=== PATIENT | male | born 1995 ===

== ENCOUNTER 2020-03-13 17:04 | Emergency (ER) | payer MEDICAID, OTHER ==
[~2020-03-13] VITALS: Ht 167.6 cm; Wt 84.1 kg
[2020-03-13] MEDS ORDERED: fentaNYL/PF 50MCG/1 ML 2ML syringe IV ONE (17:15)
[2020-03-13] MEDS ORDERED: iohexol 300mg/ml 100ml inj. ONE (17:15)
--- NOTE | 2020-03-13 17:17 | NUR ---
To CT scan
[2020-03-13 17:28] LABS: BASOPHILS % (AUTO) 0.3 % (0-1); EOSINOPHILS # (AUTO) 0.3 X10'3 (0-0.9); EOSINOPHILS % (AUTO) 2.5 % (0-6); HEMATOCRIT 41.8 % (42.0-52.0); HEMOGLOBIN 13.6 g/dl (14.0-17.9); LYMPHOCYTES # (AUTO) 4.4 X10'3 (1.1-4.8); LYMPHOCYTES % (AUTO) 39.2 % (21-51); MEAN CORPUSCULAR HEMOGLOBIN 26.1 PG (27.0-31.0); MEAN CORPUSCULAR HGB CONC 32.6 g/dL (33.0-36.5); MEAN CORPUSCULAR VOLUME 80.1 FL (78-98); MEAN PLATELET VOLUME 8.1 FL (7.4-10.4); MONOCYTES % (AUTO) 8.5 % (2-12); NEUTROPHILS # (AUTO) 5.6 X10'3 (1.8-7.7); NEUTROPHILS % (AUTO) 49.5 % (42-75); PLATELET COUNT 405 X10'3 (140-440); RED BLOOD COUNT 5.22 X10'6 (4.70-6.10); WHITE BLOOD COUNT 11.3 X10'3 (4.5-11.0)
--- NOTE | 2020-03-13 17:39 | NUR ---
Return from CT
[2020-03-13 17:41] LABS: PARTIAL THROMBOPLASTIN TIME 28 SECONDS (22-32)
[2020-03-13 17:43] LABS: ALANINE AMINOTRANSFERASE 34 U/L (12-78); ALBUMIN 3.8 G/DL (3.4-5.0); ALBUMIN/GLOBULIN RATIO 0.9 (1.1-1.5); ALKALINE PHOSPHATASE 67 IU/L (46-116); ANION GAP 10 (8-16); ASPARTATE AMINO TRANSFERASE 20 U/L (10-37); BILIRUBIN,TOTAL 0.3 MG/DL (0.1-1.0); BLOOD UREA NITROGEN 12 MG/DL (7-18); BUN/CREATININE RATIO 10.9 (5.4-32.0); CHLORIDE 103 MMOL/L (99-107); GLUCOSE 113 MG/DL (70-104); POTASSIUM 3.4 MMOL/L (3.5-5.1); SODIUM 139 MMOL/L (135-145); TOTAL PROTEIN 7.9 G/DL (6.4-8.2); eGFR 81 ML/MIN
[2020-03-13 17:46] LABS: ETHANOL < 0.010 GM/DL (0.0-0.010); LIPASE 127 U/L (73-393); TROPONIN I < 0.04 NG/ML (0.0-0.05)
[2020-03-13] MEDS ORDERED: NO HOME MEDS (17:53)
[2020-03-13] MEDS ORDERED: ondansetron/PF 4mg/2ml inj IV ONE ×2 (17:55→18:00)
[2020-03-13 18:04] LABS: CLARITY,URINE CLEAR (Clear); COLOR,URINE YELLOW (Yellow); GLUCOSE, URINE NEGATIVE (Neg); KETONES,URINE NEGATIVE (Neg); LEUKOCYTE ESTERASE ,URINE NEGATIVE (Neg); NITRITES, URINE NEGATIVE (Neg); OCCULT BLOOD,URINE TRACE-INTACT (Neg); PROTEIN,URINE NEGATIVE (Neg); UROBILINOGEN,URINE 0.2 E.U/dL (0.2-1.0)
[2020-03-13 18:11] LABS: UA COLLECTION TYPE FOLEY CATH
[2020-03-13 18:12] LABS: BACTERIA,URINE NONE SEEN /HPF (Neg); MUCUS STRANDS FEW /LPF (Neg); RBC,URINE 0-2 /HPF (0-2); SQUAMOUS EPITHELIAL CELL,UR FEW /LPF (FEW); WBC,URINE 0-4 /HPF (0-4)
[2020-03-13] MEDS ORDERED: ceFAZolin 1GM/D5W- ADD-VANTAGE 50 ML IV ONE (18:15)
[2020-03-13 18:16] LABS: URINE AMPHETAMINE SCREEN NEGATIVE (Neg); URINE BARBITUATE SCREEN NEGATIVE (Neg); URINE BENZODIAZEPINES SCREEN NEGATIVE (Neg); URINE CANNABINOID SCREEN NEGATIVE (Neg); URINE COCAINE SCREEN NEGATIVE (Neg); URINE METHADONE SCREEN NEGATIVE (Neg); URINE OPIATE SCREEN NEGATIVE (Neg); URINE PHENCYCLIDINE SCREEN NEGATIVE (Neg)
[2020-03-13 18:24] VITALS: BP 153/75
[2020-03-13] MEDS ORDERED: TETanus/Pertussis (Acell)/Diphther VAC/PF (Tdap-Adult) 0.5ml syringe IMVAC ONE (18:25)
[2020-03-13] MEDS ORDERED: normal saline 1000ml 1,000 ML IV ONE ×2 (18:50)
== END 2020-03-13 18:40 | disposition short-term general hospital (02) ==
LOC: ER 17:05 → EDBD 17:05 → ER 18:40
DX: S02.19XA Other fracture of base of skull, initial encounter for closed fracture (principal); S02.40EA Zygomatic fracture, right side, initial encounter for closed fracture; S68.611A Complete traumatic transphalangeal amputation of left index finger, initial encounter; I49.8 Other specified cardiac arrhythmias; V89.2XXA Person injured in unspecified motor-vehicle accident, traffic, initial encounter; Y93.89 Activity, other specified; Y92.410 Unspecified street and highway as the place of occurrence of the external cause; Y99.8 Other external cause status
CPT/HCPCS: 36415; 70450; 70486; 71260; 72125; 72128; 72131; 73130; 74177; 80053; 80305; 80320; 81001; 83690; 84484; 85025; 85610; 85730; 86885; 86900; 86901; 90471; 90715; 93005; 96365; 96375; 99291; J0690; J2405; J3010; J7030; Q9967